=== PATIENT | male | born 1985 | race Caucasian/White ===

== ENCOUNTER → 2023-04-11 09:31 | Outpatient (BNVA) | payer OTHER, SELFPAY | PROVIDERS: Visit Provider Psychiatry & Neurology Psychiatry | DX: F41.0 Panic disorder [episodic paroxysmal anxiety] (principal); F43.89 Other reactions to severe stress; Z79.899 Other long term (current) drug therapy; F41.1 Generalized anxiety disorder | CPT/HCPCS: 80053; 80061; 83036; 84443; 85025 ==

== ENCOUNTER 2023-10-14 10:26 | Emergency (ER) | payer SELFPAY ==
[2023-10-14 10:46] VITALS: BP 136/86; PULSE 92; RESP 16; TEMP 36.8; O2SAT 94
--- NOTE | 2023-10-14 10:56 | US_ITS ---
WS: [id number] SCROTAL ULTRASOUND EXAMINATION CLINICAL INFORMATION: scrotal pain COMPARISON: None. FINDINGS: TESTES Normal in size and echotexture, without focal lesion. Color Doppler: Normal color Doppler flow pattern. Right testes size: 5.2 cm x 3.5 cm x 2.7 cm. Left testes size: 5.0 cm x 3.7 cm x 3.0 cm. EPIDIDYMIDES Normal in size and echotexture, without focal lesion. Color Doppler: Normal color Doppler flow pattern. Right epididymis size: 1.1 cm x 0.7 cm x 1.0 cm. Left epididymis size: 1.0 cm x 0.9 cm x 0.8 cm. HYDROCELE None. VARICOCELE None. OTHER FINDINGS None. US/US scrotum [id number] IMPRESSION: Normal examination.
--- NOTE | 2023-10-14 10:57 | ED_ITS ---
HPI - Male Genitourinary General: Chief complaint: Urogenital-Male Stated complaint: genital pain Time Seen by Provider: 10/14/23 10:47 History of Present Illness: 38-year-old man who presents to the [facility] room with genital pain. He is having pain at the base of his scrotum. No testicular pain. No penile pain. No dysuria. No hematuria. No obvious deformity on exam. Review of Systems Narrative: Constitutional symptoms: Negative except as documented in HPI. Skin symptoms: Negative except as documented in HPI. Eye symptoms: Negative except as documented in HPI. ENMT symptoms: Negative except as documented in HPI. Respiratory symptoms: Negative except as documented in HPI. Cardiovascular symptoms: Negative except as documented in HPI. Gastrointestinal symptoms: Negative except as documented in HPI. Genitourinary symptoms: Negative except as documented in HPI. Musculoskeletal symptoms: Negative except as documented in HPI. Neurologic symptoms: Negative except as documented in HPI. Psychiatric symptoms: Negative except as documented in HPI. Endocrine symptoms: Negative except as documented in HPI. [facility] ED PFSH: Medical History (Updated 10/14/23 @ 12:36 by Kia Patrick MD) Psychiatric care Physical Exam Narrative: EXAM NARRATIVE: General: Alert, no acute distress. Skin: warm and dry Head: Normocephalic Neck: Trachea midline Eye: Extraocular movements are intact. Ears, nose, mouth and throat: Oral mucosa moist Respiratory: Respirations are non-labored Genitourinary: Normal scrotal and testicular exam. Penis appears normal. No lesions. No lumps. No bumps. Musculoskeletal: Normal ROM Neurological: Alert and oriented, No focal neurological deficit observed. Psychiatric: Cooperative, appropriate mood & affect. Course Vital Signs: Vital signs: Vital Signs Temperature 98.2 F 10/14/23 10:46 Pulse Rate 79 10/14/23 12:14 Respiratory Rate 16 10/14/23 10:46 Blood Pressure 110/79 10/14/23 12:14 Pulse Oximetry 97 10/14/23 12:14 Oxygen Delivery Me thod Room Air 10/14/23 12:14 MDM - Male Medical Decision Making Medical decision making: Differential diagnosis including but not limited to and based on the above HPI, review of systems and physical exam: Scrotal ultrasound ordered to evaluate for any abnormalities such as testicular torsion, epididymitis or abscess. Urinalysis was ordered. Orders placed to evaluate differential diagnosis based on the above differential, HPI and physical exam Ultrasound of the scrotum shows no acute abnormalities. Normal exam. I reviewed the radiologist report. Lab Review: Laboratory results were reviewed and interpreted by myself the emergency room physician. Urinalysis is clear. I reviewed the patient's medical record. Reexamination: Patient remained stable. No increased work of breathing. No altered mental status. Assessment and plan: Groin pain - Discharged home - Discussed plan with patient. Answered any questions. - Evaluation and treatment of this problem were appropriate in the emergency setting. Lab Data Radiology Impressions Scrotum Ultrasound 10/14/23 10:56 IMPRESSION: Normal examination. Laboratory Results Urine Color Yellow (Yellow) 10/14/23 11:42 Urine Appearance Clear (CLEAR) 10/14/23 11:42 Urine pH 7 (5-7) 10/14/23 11:42 Ur Specific [place] 1.015 (1.005-1.030) 10/14/23 11:42 Urine Protein Neg (Negative) 10/14/23 11:42 Urine Glucose (UA) Norm (Normal) 10/14/23 11:42 Urine Ketones Negative (Negative) 10/14/23 11:42 Urine Blood Neg (Negative) 10/14/23 11:42 Urine Nitrate Negative (Negative) 10/14/23 11:42 Urine Bilirubin Neg (Negative) 10/14/23 11:42 Urine Urobilinogen Norm mg/dL (Negative) 10/14/23 11:42 Ur Leukocyte Esterase Negative (Negative) 10/14/23 11:42 Urine RBC None /hpf (0-2) 10/14/23 11:42 Urine WBC Rare /hpf (0-5) 10/14/23 11:42 Ur Squamous Epith Cells None /hpf (0-5) 10/14/23 11:42 Amorphous Sediment Not Reportable 10/14/23 11:42 Urine Bacteria None /hpf (NONE) 10/14/23 11:42 All radiology interpretation(s) finalized by discharge Discharge Plan Discharge Patient Disposition: Home Clinical Impression: Groin pain Qualifiers: Laterality: unspecified laterality Qualified Code(s): R10.30 - Lower abdominal pain, unspecified Condition: Stable Prescriptions: New diclofenac sodium 50 mg tablet,delayed release (DR/EC) 50 mg PO Q12H Qty: 20 0RF No Action mirtazapine 45 mg tablet 45 mg PO DAILY 30 Days Qty: 30 3RF oxcarbazepine [Trileptal] 300 mg tablet 300 mg PO BID 30 Days Qty: 60 3RF prazosin 2 mg capsule 2 mg PO BID Discharge Orders: Discharge ED (Routine); Ordered 10/14/23 Ordered By: Kia Patrick Referrals: Oswaldo Ghotra [Referring] - 4-7 days (Call for an appointment with a urologist if pain persists) Discharge Diet: Usual diet Discharge Activity: Increase activity as tolerated Patient Instructions: Groin Pain (ED) Activity Restrictions/Additional Instructions: Thank you for choosing [facility] for your healthcare needs today. Please realize this is an emergency room and that we are providing you with a medical screening exam and this may not be complete and all inclusive of all the testing and or work up that you may need to determine your ailment or severity of your illness. You have been screened and evaluated and felt safe for discharge. Health conditions do change or evolve sometimes and as such it is important that you follow up with your Primary Doctor to be re checked, 3-5 days is a general good time frame for follow up. You are always welcome to return to the ED for re assessment if your symptoms are worsening or you have new concerns Coding Level of Care Code ED P[employer] W[employer] Operator for Jarrod Pete
[2023-10-14 11:08] VITALS: BP 141/74; PULSE 76; O2SAT 93
[2023-10-14] MEDS: ibuprofen 800 mg tablet PO (12:13)
[2023-10-14 12:14] VITALS: BP 110/79; PULSE 79; O2SAT 97
[2023-10-14 12:30] LABS: Bilirubin Urine Neg (Negative); Blood Urine Neg (Negative); Glucose Urine UA Norm (Normal); Ketones Urine Negative (Negative); Leukocyte Esterase Urine Negative (Negative); Nitrate Urine Negative (Negative); Protein Urine Neg (Negative); Specific Gravity, Urine 1.015 (1.005-1.030); Urine Appearance Clear (CLEAR); Urine Color Yellow (Yellow); Urobilinogen Urine Norm (Negative); pH Urine 7 (5-7)
[2023-10-14 12:31] LABS: WBC Urine RARE /hpf (0-5)
[2023-10-14 12:32] LABS: Add Urine Culture? No
[2023-10-14 12:49] VITALS: BP 110/79; PULSE 79; RESP 16; TEMP 36.8; O2SAT 97
== END 2023-10-14 12:53 | disposition home or self-care (01) ==
PROVIDERS: Emergency Provider Emergency Medicine
DX: R10.30 Lower abdominal pain, unspecified (principal)
CPT/HCPCS: 76870; 81001; 99284